=== PATIENT | male | born 2000 | race Caucasian/White ===

== ENCOUNTER 2022-10-17 19:32 | Observation (INO) | payer BC ==
[2022-10-17] MEDS ORDERED: Acetaminophen 500 MG TAB ONE (20:35)
[2022-10-17] MEDS ORDERED: Ondansetron PF 4 MG/2 ML Vial ONE (20:35)
[2022-10-17 21:06] LABS: #Lymphocytes 1.3 thou/uL (1.20-3.40); #Monocytes 1.4 thou/uL (0.11-0.59); %Basophils 0.2 % (0.0-1.0); %Eosinophils 0.2 % (0.0-10.0); %Lymphocytes 10.2 % (21.0-51.0); %Monocytes 11.1 % (0.0-10.0); %Neutrophils 78.3 % (42.0-75.0); Hemoglobin 16.8 g/dL (14.0-18.0); Mean Corpuscular HGB CONC 34.5 g/dL (32.0-36.0); Mean Corpuscular Hemoglobin 33.8 pg (27.0-31.0); Mean Corpuscular Volume 98.1 fl (78.0-98.0); Platelet Count 125 10x3/uL (130-400); RBC Distribution Width 12.1 % (11.5-14.5); Red Blood Cell (RBC) Count 4.98 mill/uL (4.70-6.10); White Blood Cell (WBC) Count 12.7 10x3/uL (4.8-10.8)
[2022-10-17 21:28] LABS: ALT (SGPT) 22 U/L (8-55); AST (SGOT) 20 U/L (5-34); Albumin 4.6 g/dL (3.5-5.0); Alkaline Phosphatase 75 U/L (40-110); Anion Gap 14 mmol/L (10-20); BUN (Urea Nitrogen) 12 mg/dL (8.9-20.6); CRP (Inflammatory) 9.08 mg/dL (= or < 0.5); Calc. Creatinine Clearance 0 mL/min (70-130); Calcium 9.7 mg/dL (7.8-10.44); Carbon Dioxide 25 mmol/L (22-29); Chloride 104 mmol/L (98-107); Estimated GFR 117; Globulin 3.2 g/dL (2.4-3.5); Glucose 85 mg/dL (70-105); Lipase 16 U/L (8-78); Potassium 3.9 mmol/L (3.5-5.1); Protein, Total 7.8 g/dL (6.0-8.3); Sodium 139 mmol/L (136-145)
[2022-10-17] MEDS ORDERED: Piperacillin/Tazobactam 4.5 GM VIAL ONE (21:51)
[2022-10-17] MEDS ORDERED: Acetaminophen 325 MG TAB PO PRN (23:45)
[2022-10-17] MEDS ORDERED: Ondansetron ODT 4 MG TAB SL PRN (23:45)
[2022-10-17] MEDS ORDERED: Ondansetron PF 4 MG/2 ML Vial IVP PRN (23:45)
[2022-10-17] MEDS ORDERED: Morphine 4 MG/ML VIAL SLOW IVP PRN (23:46)
[2022-10-17 23:47] VITALS: BMI 26.9
[2022-10-18] MEDS: Lactated Ringer's 1,000 ML IV SCH ×4 (00:13→15:59)
[2022-10-18] MEDS ORDERED: Ketorolac Tromethamine 30 MG/ML VIAL IVP SCH (00:15)
[2022-10-18] MEDS ORDERED: Piperacillin/Tazobactam 3.375 GM in Sodium Chloride 0.9% 100 ML IVPB SCH (02:00)
[2022-10-18] MEDS ORDERED: Ketorolac Tromethamine 30 MG/ML VIAL IVP PRN (06:00)
[2022-10-18] MEDS ORDERED: Morphine 4 MG/ML VIAL SLOW IVP PRN (15:06)
[2022-10-18] MEDS ORDERED: Acetaminophen 500 MG TAB PO PRN (15:31)
[2022-10-18] MEDS ORDERED: traMADol HCl 50 MG TAB PO PRN (15:31)
[2022-10-18] MEDS ORDERED: Ibuprofen 600 MG TAB PO PRN (15:31)
[2022-10-18] MEDS ORDERED: Acetaminophen 500 MG TAB PO SCH (15:45)
[2022-10-18 15:56] VITALS: BP 121/71; TEMP 97.7
== END 2022-10-18 16:30 | disposition short-term general hospital (02) ==
LOC: ERS 19:32 → SJJU 22:01
PROVIDERS: ADMIT Specialist; ATTEND Specialist
DX: K80.00 Calculus of gallbladder with acute cholecystitis without obstruction (principal)
CPT/HCPCS: 76705; 80053; 83690; 85025; 86140; 96367; 96376; G0378; J1956; J2405; J2543; J3490; J7120